=== PATIENT | female | born 1985 | race Caucasian/White ===

== ENCOUNTER 2017-03-20 23:11 | Inpatient (IN) | payer BC ==
[~2017-03-20] VITALS: Ht 170.2 cm; Wt 90.9 kg
--- NOTE | ~2017-03-20 | OR ---
PATIENT'S NAME: [facility] AGE: 31 Y [address] ROOM: [place] [address] LOCATION: [facility] ADMIT DATE: 03/21/2017 OR/Procedure Report DISCHARGE DATE: FAMILY PHYSICIAN: PHYSICIAN, NO ATTENDING PHYSICIAN: DANG JAQUEZ SURGEON: Dang Jaquez MD CERTIFIED PROSTHETIST VICE PRESIDENT: None. DATE OF PROCEDURE: 03/21/2017 PRE-DELIVERY DIAGNOSES: 1. Intrauterine at 37 weeks 0 days. 2. Active labor. POST-DELIVERY DIAGNOSES: 1. Intrauterine at 37 weeks 0 days. 2. Active labor. ANESTHESIA: Epidural. ANTIBIOTICS: None indicated. FINDINGS: Viable female infant weighing 6 pounds 14 ounces and score 8 and 9. Intact placenta with accessory lobe present. Three-vessel cord. Normal-appearing cervix and vagina. Second-degree perineal laceration repaired per routine and hemostatic. SPECIMENS: Cord blood. Placenta not sent for pathology. ESTIMATED BLOOD LOSS: 300 mL. COMPLICATIONS: None. DISPOSITION: The patient is stable and remained in room with infant. INDICATION FOR PROCEDURE: The patient is a 31-year-old G2, P1-0-0-1, who presented at 37 weeks and 0 days with complaints of contractions. She was 4 cm dilated on presentation. She was admitted for labor management. She made progress to complete. She had spontaneous rupture of membranes during the course of her labor process. DESCRIPTION OF PROCEDURE: The patient was in dorsal lithotomy position in stirrups. With maternal expulsive efforts, head delivered in the straight OA presentation. head was allowed to restitute. Nuchal cord x1 was reduced. With the assistance of maternal expulsive efforts and gentle downward and then upward traction by the surgeons, the shoulders were PATIENT'S NAME: [facility] AGE: 31 Y [address] ROOM: [place] [address] LOCATION: [facility] ADMIT DATE: 03/21/2017 OR/Procedure Report DISCHARGE DATE: FAMILY PHYSICIAN: PHYSICIAN, NO ATTENDING PHYSICIAN: DANG JAQUEZ delivered followed by remainder of the body. was placed on mother's chest. Cord was clamped and cut. The cord blood was obtained and IV Pitocin was started per protocol. Gentle downward traction was placed on the umbilical cord and the placenta delivered spontaneously and intact. An accessory lobe was noted and had previously been visualized on ultrasound. Inspection of the cervix, perineum, and vagina revealed a second-degree perineal laceration which was repaired per routine with 3-0 Vicryl. The patient had minimal free flow at that time. All needle, sponge, and instrument counts were noted be correct x2 and the patient remained in her room. MD KALPESH JAMES/irineo /[id number] d: 03/21/17 0539 t: 03/25/17 0429, OPERATIVE SUMMARY
[~2017-03-20 23:11] MED LIST: PRENATAL 1+1)(P1 TAB PO
[2017-03-21 02:33] LABS: BASOPHIL % 0.2 %; EOSINOPHIL % 0.1 %; HEMATOCRIT 38.7 % (33.0-46.0); HEMOGLOBIN 13.8 g/dL (11.0-15.0); IMMATURE GRANULOCYTE % 0.4 %; LYMPHOCYTE # 3.3 K/uL (0.8-4.0); LYMPHOCYTE % 31.8 %; MCH 32.5 pg (27.0-34.0); MCHC 35.7 gm/dL (32.0-36.5); MCV 91.1 fl (83.0-98.0); MONOCYTE # 0.6 K/uL (0.0-1.0); MONOCYTE % 5.5 %; NEUTROPHIL # (ANC) 6.4 K/uL (1.8-7.8); NRBC % 0 /100WBC (0-0.00); PLATELET COUNT 217 K/uL (150-450); RBC 4.25 M/uL (3.50-5.00); WBC 10.3 K/uL (4.0-11.0)
--- NOTE | 2017-03-21 17:13 | NUR ---
Last VS: T:98.1 P:77 R: 17 BP: 109/71 Pain ratin Last pain med: Motrin Medicated at: 1630 Effective: yes Breasts: soft Nipples: flat/intact-has everter Fundus: firm, even, midline Lochia: small, rubra Epis/Perineum: approximated, tender Voiding well: yes Significant event: indpendent with self and baby cares doing well, screen ordered for tomorrow morning pt needs Rhogam.
[2017-03-22 04:19] LABS: BASOPHIL % 0.3 %; EOSINOPHIL % 0.5 %; IMMATURE GRANULOCYTE % 0.4 %; LYMPHOCYTE # 2.5 K/uL (0.8-4.0); LYMPHOCYTE % 34.3 %; MCH 32.8 pg (27.0-34.0); MCHC 34.3 gm/dL (32.0-36.5); MCV 95.6 fl (83.0-98.0); MONOCYTE # 0.6 K/uL (0.0-1.0); MONOCYTE % 7.7 %; NEUTROPHIL # (ANC) 4.2 K/uL (1.8-7.8); NEUTROPHIL % 56.8 %; NRBC % 0 /100WBC (0-0.00); RBC 3.66 M/uL (3.50-5.00); RDW-CV 12.5 % (11.9-14.6); WBC 7.3 K/uL (4.0-11.0)
[2017-03-22 04:25] LABS: PLATELET COUNT 164 K/uL (150-450)
--- NOTE | 2017-03-22 04:36 | NUR ---
Last VS: T:97.7 P:69 R: 16 BP: 109/68 Pain ratin. Last pain med: Motrin Medicated at: 0005 Effective: Sleeping Breasts: SOFT , Nipples:INTACT Fundus:FIRM/MIDLINE/1 BELOW UMBILICUS Lochia: SCANT/RUBRA Epis/Perineum: TENDER Voiding well: YES Significant event: MOTRIN ONLY GIVEN FOR DISCOMFORT THIS SHIFT. GIVEN LAST @ 0005. DENIES NEEDS. ACTIVE IN CARES. DISMISSAL TO HOME TODAY .
[2017-03-22] MEDS ORDERED: LANSINOH7 GM TOP (15:11)
[2017-03-22] MEDS ORDERED: MOTRIN800 MG PO (15:11)
[2017-03-22] MEDS ORDERED: APNO TOP (15:11)
[2017-03-22] MEDS ORDERED: DERMOPLAST SPRA56 GM TOP (15:11)
[2017-03-22] MEDS ORDERED: SURFAK240 MG PO (15:11)
[2017-03-22] MEDS ORDERED: NORCO 5-325 TA1 EACH PO (15:12)
== END 2017-03-22 16:05 | disposition disaster alternative care site (69) | DRG 775 ==
LOC: GOBS 23:11 → GOBM 23:11 → GOBS 03-21 02:41 → GOBM 04-09 09:55
PROVIDERS: ADMIT Obstetrics & Gynecology
DX: O70.1 Second degree perineal laceration during delivery (principal); Z37.0 Single live birth; O43.193 Other malformation of placenta, third trimester; O69.81X0 Labor and delivery complicated by cord around neck, without compression, not applicable or unspecified; Z3A.37 37 weeks gestation of pregnancy
CPT/HCPCS: J2001; J2590; J2791; J3010; J7120